=== PATIENT | male | born 1940 | race Caucasian/White ===

== ENCOUNTER 2024-03-02 11:07 | Outpatient (AMB) | payer MEDICARE, SELFPAY ==
[2024-03-02 11:15] VITALS: BP 144/65; PULSE 89; O2SAT 95
--- NOTE | 2024-03-02 11:15 | MHC.OFFVIS ---
Vital Signs 03/02/24 11:15 Height 5 ft 4 in Weight 175 lb BMI 30.0 BP 144/65 H Blood Pressure Location Lt brachial Position Sitting Pulse 89 Pulse Source Pulse Oximeter Pulse Oximetry (%) 95 Oxygen Delivery Method Room Air Intake Visit Reasons: Neck pain arthritic changes Allergies Sulfa (Sulfonamide Antibiotics) Allergy (Verified 03/02/24 11:16) GI upset Medication List - Last Reconciled 03/02/24 by Angie Borden amlodipine 10 mg PO DAILY aspirin 81 mg PO DAILY atorvastatin 20 mg PO DAILY benzonatate 100 mg PO TID dapagliflozin propanediol (Farxiga) 10 mg PO DAILY glipizide ER 5 mg PO DAILY hydrochlorothiazide 25 mg PO DAILY losartan 25 mg PO DAILY omeprazole 20 mg PO DAILY sertraline 50 mg PO DAILY HPI Comments Details: Geronimo is a very pleasant 83-year-old male who presents the office today, accompanied by his , for evaluation management of his chronic neck pain Patient reports he has been suffering with this pain for approximately 3 months. Denies inciting injury, trauma, fall He did fall approximately 5 months ago with extensive injuries to his right arm and shoulder though did not have pain to his head or neck after that injury. Endorses pain over right occipital area with intermittent radiation to the forehead. Pain today is rated as a 4/10, intermittent Pain increase was forward flexion and activities that require remaining in this position including eating meals. He has been taking ibuprofen with some improvement of his pain. Also applying topical medications with temporary improvement of his pain. PCP ordered x-ray, results as per below Physical therapy was ordered but patient has yet to start In terms of muscle damage condition is described as aching, dull, sore Pain is negatively impacting patient's enjoyment of life, general activity, sleep, mood Denies current use of anticoagulants Denies history of implantable devices, pacemaker defibrillator Endorses current nicotine/tobacco use, 1 pack per day Denies current use of alcohol or illicit substances Review of Systems Const All systems reviewed & are unremarkable except as noted in HPI and below Physical Exam Vital Signs: Last Vital Signs Pulse 89 03/02/24 11:15 BP 144/65 H 03/02/24 11:15 Pulse Ox 95 03/02/24 11:15 Oxygen Delivery Method Room Air 03/02/24 11:15 BMI result Body Mass Index 30.0 General: awake, alert, oriented. Answers questions appropriately. Fully engaged in examination. Skin: warm, dry, intact HEENT: Normocephalic. Hearing intact. Cardiac: External chest normal in appearance. Respiratory: No cough, audible wheezing or stridor. Abdomen: without gross distension. MS: No obvious swelling or deformities. Cervical Spine: Visible inspection without gross abnormality Moderate tenderness over right upper trapezius Minimally tender to palpation midline cervical vertebrae and cervical paraspinal muscles decreased cervical ROM with forward flexion and lateral flexion Spurling compression test negative BUE strength 5/5 Neurological: Oriented to person, place, time and situation. Thought process intact. No gait abnormalities appreciated. Psychiatric: Appropriate mood and affect. Good judgment and insight. Elvey's tension test positive on the left, negative on the right. Lhermitte's test negative. Results Reviewed Results Reviewed: 02/21/24 x-ray cervical spine: Extensive bridging anterior osteophytes from C3-C6 consistent with DISH which appears to cause mass effect on the airway. Disc space narrowing at C6-C7. Assessment & Plan Assessment & Plan (1) Degenerative disc disease, cervical: Code(s): M50.30 - Other cervical disc degeneration, unspecified cervical region Category: Medical (2) Recurrent occipital headache: Code(s): R51.9 - Headache, unspecified Category: Medical Plan Geronimo is a very pleasant 83-year-old male who presented to the office today for evaluation and management of his neck/head pain Recent cervical spine x-ray reviewed, demonstrating mass effect on the posterior wall of the airway. CT head and neck without contrast ordered for further evaluation Continue with Tylenol Motrin as needed Continue with topical icy hot/Biofreeze as needed All questions and concerns were answered, patient agrees with the plan. Follow up after CT, sooner if needed Orders: Orders CT cervical spine wo IV con Today M50.30 - Other cervical disc degeneration, unspecified cervical region CT head/brain wo IV con Today R51.9 - Headache, unspecified Coding Level of Care Code New Pt Level 4 (52653) Complex EM visit Add On G2211 Diagnoses Degenerative disc disease, cervical M50.30 Recurrent occipital headache R51.9
== END 2024-03-02 11:59 | disposition home or self-care (01) ==
PROVIDERS: PCP Internal Medicine; Visit Provider Registered Nurse Emergency
DX: M50.30 Other cervical disc degeneration, unspecified cervical region (principal); R51.9 Headache, unspecified
CPT/HCPCS: 99204; G2211

== ENCOUNTER → 2024-03-02 11:07 | Outpatient (BNVA) | payer MEDICARE, SELFPAY | PROVIDERS: PCP Internal Medicine; Visit Provider Registered Nurse Emergency | DX: M50.30 Other cervical disc degeneration, unspecified cervical region (principal); R51.9 Headache, unspecified | CPT/HCPCS: 99202 ==

== ENCOUNTER 2024-03-28 07:05 | Outpatient (REF) | payer MEDICARE, SELFPAY ==
--- NOTE | ~2024-03-28 | CT_ITS ---
EXAMINATION: CT CERVICAL SPINE WITHOUT CONTRAST CLINICAL INFORMATION: Abnormal radiograph. Arthritis. COMPARISON: Images not available on our PACS system. TECHNIQUE: Thin section axial imaging with sagittal and coronal reformats are obtained. This CT examination was performed using dose optimization techniques as appropriate, variously including the following: *Automated exposure control *Adjustment of mA and/or kV according to patient size (this includes techniques or standardized protocols for targeted exams where dose is matched to indication/reason for exam; i.e. extremities or head) *Use of iterative reconstruction technique DLP: 388 mGy-cm FINDINGS: There is an extensive amount of coarse anterior bridging osteophyte and syndesmophyte formation, from the C2-3 level, down to C6 and C7, with the findings most apparent at the C4 level, with the osseous bridging measuring approximately 10.7 mm AP. This does create slight bowing mass effect on the oral airway. No fracture or destructive process. There is advanced degenerative change posterior throughout the C-spine with posterior osteophytes seen particularly at C5-6 and C6-7 with slight mass effect on the canal but no evidence of [place] cord compression. Note is made of some dystrophic calcification in the nuchal ligament. Lung apices are clear. Vascular calcifications are seen in the right and left common carotid bulbs. 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 Fleischner guidelines were followed. Electronically signed by: Hira Grier MD 03/28/2024 09:27 AM EDT
--- NOTE | ~2024-03-28 | CT_ITS ---
EXAMINATION: CT HEAD WITHOUT CONTRAST CLINICAL INFORMATION: Headaches unspecified COMPARISON: None available. TECHNIQUE: Contiguous axial imaging was performed from the skull base to vertex without intravenous administration of contrast. This CT examination was performed using dose optimization techniques as appropriate, variously including the following: *Automated exposure control *Adjustment of mA and/or kV according to patient size (this includes techniques or standardized protocols for targeted exams where dose is matched to indication/reason for exam; i.e. extremities or head) *Use of iterative reconstruction technique DLP: 932 mGy-cm FINDINGS: There is prominence to the sulci and ventricles compatible with involutional change. Deep white matter gliosis is noted. No evidence though for intra or extra-axial fluid collection, hemorrhage, mass, mass effect. Calvarium is intact. CT/CT head/brain wo IV con IMPRESSION: No acute intracranial pathology. Electronically signed by: Hira Grier MD 03/28/2024 08:59 AM EDT
== END 2024-03-28 07:06 | disposition home or self-care (01) ==
LOC: HO.CT 07:05
PROVIDERS: PCP Internal Medicine; Visit Provider Registered Nurse Emergency
DX: R51.9 Headache, unspecified (principal); M50.30 Other cervical disc degeneration, unspecified cervical region
CPT/HCPCS: 70450; 72125

== ENCOUNTER 2024-04-04 08:55 | Outpatient (AMB) | payer MEDICARE, SELFPAY ==
[2024-04-04 08:59] VITALS: BP 152/76; PULSE 79; O2SAT 94; BMI 30.6
--- NOTE | 2024-04-04 08:59 | MHC.OFFVIS ---
Vital Signs 04/04/24 08:59 Height 5 ft 4 in Weight 178 lb BMI 30.6 BP 152/76 H Blood Pressure Location Lt brachial Position Sitting Pulse 79 Pulse Source Pulse Oximeter Pulse Oximetry (%) 94 Oxygen Delivery Method Room Air Intake Visit Reasons: CT FOLLOW UP/RESULTS Allergies Sulfa (Sulfonamide Antibiotics) Allergy (Verified 04/04/24 08:59) GI upset Medication List - Last Reconciled 04/04/24 by Angie Borden amlodipine 10 mg PO DAILY aspirin 81 mg PO DAILY atorvastatin 20 mg PO DAILY benzonatate 100 mg PO TID dapagliflozin propanediol (Farxiga) 10 mg PO DAILY glipizide ER 5 mg PO DAILY hydrochlorothiazide 25 mg PO DAILY losartan 25 mg PO DAILY omeprazole 20 mg PO DAILY sertraline 50 mg PO DAILY HPI Comments Details: Patient presents back to the office today for follow-up neck pain, review recent CT scan CT scan head and cervical spine were reviewed, results as per below Patient continues with occipital headaches and pain with forward flexion of his neck. Denies new injuries, diagnoses, medications, allergies Prior: Geronimo is a very pleasant 83-year-old male who presents the office today, accompanied by his , for evaluation management of his chronic neck pain Patient reports he has been suffering with this pain for approximately 3 months. Denies inciting injury, trauma, fall He did fall approximately 5 months ago with extensive injuries to his right arm and shoulder though did not have pain to his head or neck after that injury. Endorses pain over right occipital area with intermittent radiation to the forehead. Pain today is rated as a 4/10, intermittent Pain increase was forward flexion and activities that require remaining in this position including eating meals. He has been taking ibuprofen with some improvement of his pain. Also applying topical medications with temporary improvement of his pain. PCP ordered x-ray, results as per below Physical therapy was ordered but patient has yet to start In terms of muscle damage condition is described as aching, dull, sore Pain is negatively impacting patient's enjoyment of life, general activity, sleep, mood Denies current use of anticoagulants Denies history of implantable devices, pacemaker defibrillator Endorses current nicotine/tobacco use, 1 pack per day Denies current use of alcohol or illicit substances Review of Systems Const All systems reviewed & are unremarkable except as noted in HPI and below Physical Exam Vital Signs: Last Vital Signs Pulse 79 04/04/24 08:59 BP 152/76 H 04/04/24 08:59 Pulse Ox 94 04/04/24 08:59 Oxygen Delivery Method Room Air 04/04/24 08:59 BMI result Body Mass Index 30.6 General: awake, alert, oriented. Answers questions appropriately. Fully engaged in examination. Skin: warm, dry, intact HEENT: Normocephalic. Hearing intact. Cardiac: External chest normal in appearance. Respiratory: No cough, audible wheezing or stridor. Abdomen: without gross distension. MS: No obvious swelling or deformities. Cervical Spine: Visible inspection without gross abnormality Minimally tender to palpation midline cervical vertebrae and cervical paraspinal muscles decreased cervical ROM with forward flexion and lateral flexion BUE strength 5/5 Elvey's tension test positive on the left, negative on the right. Neurological: Oriented to person, place, time and situation. Thought process intact. No gait abnormalities appreciated. Psychiatric: Appropriate mood and affect. Good judgment and insight. Results Reviewed Results Reviewed: 03/28/24 CT CS FINDINGS: There is an extensive amount of coarse anterior bridging osteophyte and syndesmophyte formation, from the C2-3 level, down to C6 and C7, with the findings most apparent at the C4 level, with the osseous bridging measuring approximately 10.7 mm AP. This does create slight bowing mass effect on the oral airway. No fracture or destructive process. There is advanced degenerative change posterior throughout the C-spine with posterior osteophytes seen particularly at C5-6 and C6-7 with slight mass effect on the canal but no evidence of [place] cord compression. Note is made of some dystrophic calcification in the nuchal ligament. Lung apices are clear. Vascular calcifications are seen in the right and left common carotid bulbs. 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 03/28/24 CT head FINDINGS: There is prominence to the sulci and ventricles compatible with involutional change. Deep white matter gliosis is noted. No evidence though for intra or extra-axial fluid collection, hemorrhage, mass, mass effect. Calvarium is intact. IMPRESSION: No acute intracranial pathology. 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 Disc space narrowing at C6-C7. Assessment & Plan Assessment & Plan (1) Degenerative disc disease, cervical: Code(s): M50.30 - Other cervical disc degeneration, unspecified cervical region Category: Medical (2) Recurrent occipital headache: Code(s): R51.9 - Headache, unspecified Category: Medical Plan Patient presented back to the office today for follow-up, review of recent CT scans CT scans reviewed, results as per above MRI cervical spine without contrast ordered given CT demonstrated posterior osteophytes seen particularly at C5-6 and C6-7 with slight mass effect on the canal Continue with Tylenol and Motrin as needed All questions and concerns were answered, patient agrees with the plan. Follow up after MRI, sooner if needed Orders: Orders MR cervical spine wo con Today M50.30 - Other cervical disc degeneration, unspecified cervical region, R51.9 - Headache, unspecified Coding Level of Care Code Est Pt Level 3 (96857) Complex EM visit Add On G2211 Diagnoses Degenerative disc disease, cervical M50.30 Recurrent occipital headache R51.9
== END 2024-04-04 09:14 | disposition home or self-care (01) ==
LOC: HO.PMC 08:55
PROVIDERS: PCP Internal Medicine; Visit Provider Registered Nurse Emergency
DX: M50.30 Other cervical disc degeneration, unspecified cervical region (principal); R51.9 Headache, unspecified
CPT/HCPCS: 99213; G2211

== ENCOUNTER → 2024-04-04 08:55 | Outpatient (BNVA) | payer MEDICARE, SELFPAY | PROVIDERS: PCP Internal Medicine; Visit Provider Registered Nurse Emergency | DX: M50.30 Other cervical disc degeneration, unspecified cervical region (principal); R51.9 Headache, unspecified | CPT/HCPCS: 99212 ==

== ENCOUNTER 2024-05-03 09:34 | Outpatient (REF) | payer MEDICARE, SELFPAY ==
--- NOTE | ~2024-05-03 | MR_ITS ---
EXAMINATION: MR CERVICAL SPINE WITHOUT CONTRAST CLINICAL INFORMATION: CT demonstrated posterior osteophytes seen particularly at C5-6 and C6-7 with slight mass effect on the canal. Evaluate for neural integrity COMPARISON: None available. TECHNIQUE: MRI of the cervical spine was obtained using routine sequences without contrast. FINDINGS: The imaged posterior fossa is unremarkable. Slight straightening of the normal cervical lordosis. Anterolisthesis at C6-7 and C7-T1. No acute pulmonary abnormality. The vertebral body heights are preserved. Multilevel disc desiccation and disc height loss, possibly related to severe at C6-7. There is a large bridging osteophyte spanning C3-C6. The visualized spinal cord is normal in caliber. No abnormal cord signal. C2-3: Bilateral facet arthrosis. No significant canal or foraminal narrowing. C3-4: Disc osteophyte complex, bilateral uncovertebral hypertrophy, and bilateral facet arthrosis. Moderate right and mild left neural foraminal narrowing. No significant spinal canal stenosis. C4-5: Disc osteophyte complex, bilateral uncovertebral hypertrophy, bilateral facet arthrosis. Mild to moderate left and mild right neural foraminal narrowing. No significant spinal canal stenosis. C5-6: Disc osteophyte complex, bilateral uncovertebral hypertrophy, bilateral facet arthrosis. Moderate left greater than right neural foraminal narrowing. No significant spinal canal stenosis. C6-7: There is osteophyte complex, bilateral uncovertebral hypertrophy, without evidence of atelectasis. Moderate bilateral neural foraminal narrowing. No significant plaque or stenosis. C7-T1: Bilateral basilar atelectasis. No significant spinal canal or neural foraminal narrowing. The paravertebral soft tissues are unremarkable. The imaged apices are clear. MR/MR cervical spine wo con IMPRESSION: Multilevel cervical spondylosis without significant spinal canal stenosis or cord compression. There is multilevel neural foraminal narrowing, worst and moderate at C3-C4, C5-C6, and C6-C7. Electronically signed by: Satinder Sanchez MD 05/03/2024 02:29 PM [facility]
--- OUTSIDE RECORDS SUMMARY | 2024-05-09 00:59 | XMS_ITS ---
Author Name [facility] Organization Unknown History of Medication Use Medication Directions Dispensed Refills Start Date End Date Stat Farxiga 10 MG tablet Take 10 mg by mouth every morning. for 90 days 11/12/2023 active fenofibrate (TRIGLIDE) 160 MG tablet Take 160 mg by mouth daily. 11/08/2023 active aspirin 81 MG chewable tablet Chew 1 tablet (81 mg total) daily. 11/08/2023 active hydroCHLOROthiazide (HYDRODIURIL) 25 MG tablet Take 25 mg by mouth daily. 11/08/2023 active OMEprazole (PriLOSEC) 20 MG capsule TAKE 1 CAPSULE ONCE DAILY BEFORE A MEAL 11/08/2023 active losartan (COZAAR) 25 MG tablet Take 25 mg by mouth daily. 11/08/2023 aborted sertraline (ZOLOFT) 50 MG tablet Take 50 mg by mouth daily. 11/08/2023 active glipiZIDE (GLUCOTROL XL) 2.5 MG 24 hr tablet Take 2.5 mg by mouth daily. 11/08/2023 active atorvastatin (LIPITOR) 20 MG tablet Take 20 mg by mouth daily. 11/08/2023 active losartan (COZAAR) 50 MG tablet Take 1 tablet (50 mg total) by mouth daily. 11/08/2023 active doxycycline (VIBRAMYCIN) 50 MG capsule Take by mouth daily. 11/08/2023 active amLODIPine (NORVASC) 10 MG tablet Take 10 mg by mouth daily. 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
== END 2024-05-03 09:35 | disposition home or self-care (01) ==
LOC: HO.MRI 09:34
PROVIDERS: PCP Internal Medicine; Visit Provider Registered Nurse Emergency
DX: M50.30 Other cervical disc degeneration, unspecified cervical region (principal); R51.9 Headache, unspecified
CPT/HCPCS: 72141

== ENCOUNTER 2024-05-09 13:17 | Outpatient (AMB) | payer MEDICARE, SELFPAY ==
--- NOTE | 2024-05-09 13:29 | MHC.OFFVIS ---
Vital Signs 05/09/24 13:36 Height 5 ft 4 in Weight 175 lb BMI 30.0 BP 137/65 Blood Pressure Location Rt brachial Position Sitting Pulse 83 Pulse Source Pulse Oximeter Pulse Oximetry (%) 97 Oxygen Delivery Method Room Air Intake Visit Reasons: MRI Results FU Allergies Sulfa (Sulfonamide Antibiotics) Allergy (Verified 05/09/24 13:37) GI upset HPI Comments Details: Patient presents back to the office today for follow-up neck pain, review of recent MRI MRI reviewed, results as per below Pain today is rated as a 3/10 Continues with bilateral neck pain worse with cervical range of motion Denies recent attempts at physical therapy. Reports his headaches have been better over the last couple of weeks but the neck pain persists Pain is improved with ibuprofen Prior: Patient presents back to the office today for follow-up neck pain, review recent CT scan CT scan head and cervical spine were reviewed, results as per below Patient continues with occipital headaches and pain with forward flexion of his neck. Denies new injuries, diagnoses, medications, allergies Prior: Geronimo is a very pleasant 83-year-old male who presents the office today, accompanied by his , for evaluation management of his chronic neck pain Patient reports he has been suffering with this pain for approximately 3 months. Denies inciting injury, trauma, fall He did fall approximately 5 months ago with extensive injuries to his right arm and shoulder though did not have pain to his head or neck after that injury. Endorses pain over right occipital area with intermittent radiation to the forehead. Pain today is rated as a 4/10, intermittent Pain increase was forward flexion and activities that require remaining in this position including eating meals. He has been taking ibuprofen with some improvement of his pain. Also applying topical medications with temporary improvement of his pain. PCP ordered x-ray, results as per below Physical therapy was ordered but patient has yet to start In terms of muscle damage condition is described as aching, dull, sore Pain is negatively impacting patient's enjoyment of life, general activity, sleep, mood Denies current use of anticoagulants Denies history of implantable devices, pacemaker defibrillator Endorses current nicotine/tobacco use, 1 pack per day Denies current use of alcohol or illicit substances Review of Systems Const All systems reviewed & are unremarkable except as noted in HPI and below Physical Exam Vital Signs: Last Vital Signs Pulse 83 05/09/24 13:36 BP 137/65 05/09/24 13:36 Pulse Ox 97 05/09/24 13:36 Oxygen Delivery Method Room Air 05/09/24 13:36 BMI result Body Mass Index 30.0 General: awake, alert, oriented. Answers questions appropriately. Fully engaged in examination. Skin: warm, dry, intact HEENT: Normocephalic. Hearing intact. Cardiac: External chest normal in appearance. Respiratory: No cough, audible wheezing or stridor. Abdomen: without gross distension. MS: No obvious swelling or deformities. Cervical Spine: Visible inspection without gross abnormality decreased cervical ROM with increased pain BUE strength 10/01 Neurological: Oriented to person, place, time and situation. Thought process intact. No gait abnormalities appreciated. Psychiatric: Appropriate mood and affect. Good judgment and insight. Results Reviewed Results Reviewed: 05/03/2024 MRI CS FINDINGS: The imaged posterior fossa is unremarkable. Slight straightening of the normal cervical lordosis. Anterolisthesis at C6-7 and C7-T1. No acute pulmonary abnormality. The vertebral body heights are preserved. Multilevel disc desiccation and disc height loss, possibly related to severe at C6-7. There is a large bridging osteophyte spanning C3-C6. The visualized spinal cord is normal in caliber. No abnormal cord signal. C2-3: Bilateral facet arthrosis. No significant canal or foraminal narrowing. C3-4: Disc osteophyte complex, bilateral uncovertebral hypertrophy, and bilateral facet arthrosis. Moderate right and mild left neural foraminal narrowing. No significant spinal canal stenosis. C4-5: Disc osteophyte complex, bilateral uncovertebral hypertrophy, bilateral facet arthrosis. Mild to moderate left and mild right neural foraminal narrowing. No significant spinal canal stenosis. C5-6: Disc osteophyte complex, bilateral uncovertebral hypertrophy, bilateral facet arthrosis. Moderate left greater than right neural foraminal narrowing. No significant spinal canal stenosis. C6-7: There is osteophyte complex, bilateral uncovertebral hypertrophy, without evidence of atelectasis. Moderate bilateral neural foraminal narrowing. No significant plaque or stenosis. C7-T1: Bilateral basilar atelectasis. No significant spinal canal or neural foraminal narrowing. The paravertebral soft tissues are unremarkable. The imaged apices are clear. IMPRESSION: Multilevel cervical spondylosis without significant spinal canal stenosis or cord compression. There is multilevel neural foraminal narrowing, worst and moderate at C3-C4, C5-C6, and C6-C7. 03/28/24 CT CS FINDINGS: There is an extensive amount of coarse anterior bridging osteophyte and syndesmophyte formation, from the C2-3 level, down to C6 and C7, with the findings most apparent at the C4 level, with the osseous bridging measuring approximately 10.7 mm AP. This does create slight bowing mass effect on the oral airway. No fracture or destructive process. There is advanced degenerative change posterior throughout the C-spine with posterior osteophytes seen particularly at C5-6 and C6-7 with slight mass effect on the canal but no evidence of [place] cord compression. Note is made of some dystrophic calcification in the nuchal ligament. Lung apices are clear. Vascular calcifications are seen in the right and left common carotid bulbs. 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 03/28/24 CT head FINDINGS: There is prominence to the sulci and ventricles compatible with involutional change. Deep white matter gliosis is noted. No evidence though for intra or extra-axial fluid collection, hemorrhage, mass, mass effect. Calvarium is intact. IMPRESSION: No acute intracranial pathology. 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 Disc space narrowing at C6-C7. Assessment & Plan Assessment & Plan (1) Degenerative disc disease, cervical: Code(s): M50.30 - Other cervical disc degeneration, unspecified cervical region Category: Medical (2) Recurrent occipital headache: Code(s): R51.9 - Headache, unspecified Category: Medical (3) Cervical spondylosis: Code(s): M47.812 - Spondylosis without myelopathy or radiculopathy, cervical region Category: Medical Plan Patient presented back to the office today for follow-up, review of recent MRI MRI reviewed, results as per above Order placed for PT eval and treat Continue with Tylenol and Motrin as needed If no improvement after physical therapy will plan for cervical medial branch blocks with local anesthetic. All questions and concerns were answered, patient agrees with the plan. Follow up after physical therapy, sooner if needed Orders: Orders PT Evaluation and Treatment Today M47.812 - Spondylosis without myelopathy or radiculopathy, cervical region, M50.30 - Other cervical disc degeneration, unspecified cervical region, R51.9 - Headache, unspecified Coding Level of Care Code Est Pt Level 3 (44255) Complex EM visit Add On G2211 Diagnoses Degenerative disc disease, cervical M50.30 Recurrent occipital headache R51.9 Cervical spondylosis M47.812
[2024-05-09 13:36] VITALS: BP 137/65; PULSE 83; O2SAT 97
== END 2024-05-09 14:21 | disposition home or self-care (01) ==
PROVIDERS: PCP Internal Medicine; Visit Provider Registered Nurse Emergency
DX: M50.30 Other cervical disc degeneration, unspecified cervical region (principal); R51.9 Headache, unspecified; M47.812 Spondylosis without myelopathy or radiculopathy, cervical region
CPT/HCPCS: 99213; G2211

== ENCOUNTER → 2024-05-09 13:17 | Outpatient (BNVA) | payer MEDICARE, SELFPAY | PROVIDERS: PCP Internal Medicine; Visit Provider Registered Nurse Emergency | DX: M50.30 Other cervical disc degeneration, unspecified cervical region (principal); M47.812 Spondylosis without myelopathy or radiculopathy, cervical region; R51.9 Headache, unspecified | CPT/HCPCS: 99212 ==